=== PATIENT | female | born 1990 | race Caucasian/White ===

== ENCOUNTER 2016-08-13 18:04 | Emergency (ER) | payer MEDICAID, OTHER ==
[~2016-08-13] VITALS: Ht 160 cm; Wt 64.5 kg
[~2016-08-13 18:04] MED LIST: PRENAT PO
[2016-08-13 18:10] VITALS: Ht 160 cm; Wt 64.5 kg
--- NOTE | 2016-08-13 18:46 | ERD ---
ER Documentation Chief Complaint Date/Time DATE: 08/13/16 TIME: 18:38 Chief Complaint VAG BLEED , LMP 07/02/16 HPI 26 year old female density department for complaints of vaginal bleeding that started today, patient last menstruation 06/12/2016. Patient states she may be approximately 6 weeks . Patient had a spotting episode 3 weeks ago, started to have bleeding today, more heavier and clots. Patient denies any flank pain. Patient is in nausea vomiting. Patient denies any fever or chills. ROS All systems reviewed and are negative except as per history of present illness. Medications Home Meds Reported Medications Multivit/Min/Fol Ac/Iron/Pren* ( S*) 1 Tab Tab, 1 TAB PO DAILY, TAB 11/09/14 Allergies Allergies: Coded Allergies: No Known Allergy (Unverified , 08/13/16) PMhx/Soc Medical and Surgical Hx: pt denies Medical Hx History of Surgery: Yes (c-sec x1) Anesthesia Reaction: No Hx Neurological Disorder: No Hx Respiratory Disorders: No Hx Cardiac Disorders: No Hx Psychiatric Problems: No Hx Miscellaneous Medical Probl: No Hx Alcohol Use: No Hx Substance Use: No Hx Tobacco Use: No Smoking Status: Never smoker FmHx Family History: No coronary disease, No diabetes, No other Physical Exam Vitals Vital Signs Date Time Temp Pulse Resp B/P Pulse Ox O2 Delivery O2 Flow Rate FiO2 08/13/16 18:10 98.9 90 18 137/84 100 Physical Exam GENERAL: The patient is well developed and appropriate for usual state of health, in no apparent distress. CHEST: Clear to auscultation bilaterally. There are no rales, wheezes or rhonchi. HEART: Regular rate and rhythm. No murmurs, clicks, rubs or gallops. No S3 or S4. ABDOMEN: Soft, nontender and nondistended. Good bowel sounds. No rebound or guarding. No gross peritonitis. No gross organomegaly or masses. No Subramanian sign or McBurney point tenderness. BACK: No midline or flank tenderness. EXTREMITIES: Equal pulses bilaterally. There is no peripheral clubbing, cyanosis or edema. No focal swelling or erythema. Full range of motion. Grossly neurovascularly intact. NEURO: Alert and oriented. Cranial nerves 2-12 intact. Motor strength in all 4 extremities with 5/5 strength. Sensation grossly intact. Normal speech and gait. SKIN: There is no apparent rash or petechia. The skin is warm and dry. HEMATOLOGIC AND LYMPHATIC: There is no evidence of excessive bruising or lymphedema. No gross cervical, axillary, or inguinal lymphadenopathy. Vaginal: Small amount of blood in the vaginal vault. Cervical os is closed. No cervical motion tenderness or adnexal tenderness noted. Result Diagram: 08/13/16 1850 Results 24 hrs Laboratory Tests Test 08/13/16 18:50 White Blood Count 10.810^3/ul Red Blood Count 4.4810^6/ul Hemoglobin 12.1g/dl Hematocrit 35.6% Mean Corpuscular Volume 79.5fl Mean Corpuscular Hemoglobin 27.0pg Mean Corpuscular Hemoglobin Concent 34.0g/dl Red Cell Distribution Width 12.3% Platelet Count 91087^3/UL Mean Platelet Volume 10.7fl Neutrophils % 76.3% Lymphocytes % 16.1% Monocytes % 6.4% Eosinophils % 0.7% Basophils % 0.1% Nucleated Red Blood Cells % 0.0/100WBC Neutrophils # 8.310^3/ul Lymphocytes # 1.710^3/ul Monocytes # 0.710^3/ul Eosinophils # 0.110^3/ul Basophils # 0.010^3/ul Nucleated Red Blood Cells # 0.010^3/ul Urine Color STRAW Urine Clarity CLEAR Urine pH 7.0 Urine Specific [place] 1.009 Urine Ketones NEGATIVEmg/dL Urine Nitrite NEGATIVEmg/dL Urine Bilirubin NEGATIVEmg/dL Urine Urobilinogen NEGATIVEmg/dL Urine Leukocyte Esterase NEGATIVELeu/ul Urine Hemoglobin NEGATIVEmg/dL Urine Glucose NEGATIVEmg/dL Urine Total Protein NEGATIVEmg/dl Beta HCG, Quantitative 05572.0mIU/ml PROCEDURE: US OB. CLINICAL INDICATION: Vaginal bleeding. TECHNIQUE: Multiple sonographic images of the pelvis were obtained. Transabdominal and transvaginal views of the pelvis are available for review. The images were reviewed on a PACS workstation. COMPARISON: No prior studies are available for comparison. FINDINGS: A single live intrauterine is identified. heart rate is 110 beats per minute. The crown-rump length is 0.38 cm which corresponds to 6 weeks 0 days gestational age by ultrasound criteria. Estimated date of delivery is by crown rump length. There is a minimal amount of subchorionic hemorrhage adjacent to the gestational sac. There is a 1 x 0.96 x 1.2 cm uterine fibroid. The ovaries are not identified.. There is no adnexal mass. There is no free fluid. IMPRESSION: 1. Single live intrauterine gestation of approximately 6 weeks 0 days. 2. Minimal subchorionic hemorrhage. 3.Small uterine fibroid. 4. Ovaries not identified. RPTAT: HMVK .Erasmo Cortez MD, MD Date Time Electronically viewed and signed by .Erasmo Cortez MD, on 08/13/2016 20:07 .K/ CC: JUANPABLO CHAVEZ [employer] Procedures/MDM Medical Decision Making: Patients vaginal bleeding is most likely consistent of possible threatened . Patient does not show any evidence of hypovolemic shock. Patients hemoglobin and hematocrit is stable. There is low suspicion for ectopic . [place] results show intrauterine 6 weeks with uterine fibroid and mild subchorionic hemorrhage most likely causing the bleeding. BetaHCG Quantitative is appropriate for The patient is Rh+, does not need RhoGAM this time. There is no signs of symptoms of dehydration. There is low suspicion for sepsis. Patient appears well and is hemodynamically stable. Disposition: Home. Condition: Stable Instructions: Patient is advised to do bed rest, avoid heavy lifting, and avoid having sex until cleared by OB doctor. Patient is advised to follow up with OB doctor or here at the ER in 48 hours for reevaluation of symptoms, repeat beta HCG quantitative and ultrasound. Patient is advised that is symptoms are worst, severe bleeding, dizziness, severe abdominal pain, fever, worst signs and symptoms to return to the emergency department immediately. Departure Diagnosis: Primary Impression: Vaginal bleeding in patient at less than 20 weeks gestation Additional Impressions: Subchorionic hemorrhage Fetus number: single or unspecified fetus Trimester: first trimester Qualified Code: O41.8X10 - Subchorionic hemorrhage, first trimester, not applicable or unspecified fetus Intrauterine Uterine fibroid Uterine leiomyoma location: unspecified location Qualified Code: D25.9 - Uterine leiomyoma, unspecified location Condition: Stable Patient Instructions: Bleeding During Early , Uterine Fibroids Additional Instructions: Patient is advised to do bed rest, avoid heavy lifting, and avoid having sex until cleared by OB doctor. Patient is advised to follow up with OB doctor or here at the ER in 48 hours for reevaluation of symptoms, repeat beta HCG quantitative and ultrasound. Patient is advised that is symptoms are worst, severe bleeding, dizziness, severe abdominal pain, fever, worst signs and symptoms to return to the emergency department immediately. JUANPABLO CHAVEZ NP Aug 13, 2016 18:46
[2016-08-13 19:14] LABS: ADD UMIC NO; BASOPHILS % 0.1 % (0.0-2.0); EOSINOPHILS # 0.1 10^3/ul (0.0-0.5); EOSINOPHILS % 0.7 % (0.0-7.0); HEMATOCRIT 35.6 % (37.0-47.0); HEMOGLOBIN 12.1 g/dl (12.0-16.0); LYMPHOCYTES # 1.7 10^3/ul (0.8-2.9); LYMPHOCYTES % 16.1 % (15.0-51.0); MEAN CORPUSCULAR VOLUME 79.5 fl (82.0-101.0); MEAN PLATELET VOLUME 10.7 fl (7.4-10.4); MONOCYTE # 0.7 10^3/ul (0.3-0.9); MONOCYTES % 6.4 % (0.0-11.0); NEUTROPHIL # 8.3 10^3/ul (1.6-7.5); NEUTROPHILS % 76.3 % (39.0-77.0); PLATELET COUNT 221 10^3/UL (140-415); RED BLOOD COUNT 4.48 10^6/ul (4.20-5.40); RED CELL DISTRIBUTION WIDTH 12.3 % (11.5-14.5); UR ASCORBIC ACID NEGATIVE (NEGATIVE); UR BILIRUBIN (Dip) NEGATIVE (NEGATIVE); UR BLOOD (Dip) NEGATIVE (NEGATIVE); UR CLARITY CLEAR (CLEAR); UR COLOR STRAW (YELLOW); UR GLUCOSE (Dip) NEGATIVE (NEGATIVE); UR KETONES (Dip) NEGATIVE (NEGATIVE); UR LEUKOCYTE ESTERASE (Dip) NEGATIVE Leu/ul (NEGATIVE); UR NITRITE (Dip) NEGATIVE (NEGATIVE); UR SPECIFIC GRAVITY (Dip) 1.009 (1.003-1.030); UR TOTAL PROTEIN (Dip) NEGATIVE (NEGATIVE); UR UROBILINOGEN (Dip) NEGATIVE (NEGATIVE); WHITE BLOOD COUNT 10.8 10^3/ul (4.8-10.8)
[2016-08-13 19:16] LABS: ADD SCAN DIFF NO
--- NOTE | 2016-08-13 20:07 | RADRPT ---
PROCEDURE: US OB. CLINICAL INDICATION: Vaginal bleeding. TECHNIQUE: Multiple sonographic images of the pelvis were obtained. Transabdominal and transvagin al views of the pelvis are available for review. The images were reviewed on a PACS workstation. COMPARISON: No prior studies are available for comparison. FINDINGS: A single live intrauterine is identified. heart rate is 110 beats per minute. The cr own-rump length is 0.38 cm which corresponds to 6 weeks 0 days gestational age by ultrasound criteri a. Estimated date of delivery is 04/08/2017 by crown rump length. There is a minimal amount of sub chorionic hemorrhage adjacent to the gestational sac. There is a 1 x 0.96 x 1.2 cm uterine fibroid. The ovaries are not identified.. There is no adnexal mass. There is no free fluid. IMPRESSION: 1. Single live intrauterine gestation of approximately 6 weeks 0 days. 2. Minimal subchorionic hemorrhage. 3.Small uterine fibroid. 4. Ovaries not identified. RPTAT: HMVK .Erasmo Cortez MD, Date Time Electronically viewed and signed by .Erasmo Cortez MD, on 08/13/2016 20:07 .K/
== END 2016-08-13 20:40 | disposition home or self-care (01) ==
LOC: FTE 18:04
DX: O20.9 Hemorrhage in early pregnancy, unspecified (principal); O41.8X10 Other specified disorders of amniotic fluid and membranes, first trimester, not applicable or unspecified; O34.11 Maternal care for benign tumor of corpus uteri, first trimester; R10.2 Pelvic and perineal pain; Z3A.01 Less than 8 weeks gestation of pregnancy
CPT/HCPCS: 36415; 76801; 81003; 84702; 85025; 86900; 86901

== ENCOUNTER 2016-08-17 21:33 | Emergency (ER) | payer OTHER ==
[~2016-08-17] VITALS: Ht 160 cm; Wt 65.0 kg
[2016-08-17 21:38] VITALS: Ht 160 cm; Wt 65.0 kg
[2016-08-17] MEDS ORDERED: ACETAMINOPHEN 500 MG TAB PO STA (22:32)
--- NOTE | 2016-08-17 22:37 | ERD ---
ER Documentation Chief Complaint Date/Time DATE: 08/17/16 TIME: 22:35 Chief Complaint abdominal cramping x 5 days. denies vb was here 4 days ago for same HPI This a 18-year-old female who presents the emergency department today for concerns of continued vaginal spotting and bleeding and "passing a clot today". States she has had some nausea and has continued cramping. States she is not taking medication for the pain. States she is approximate 6 weeks . States she went to her primary care doctor today but still waiting for [employer] referral. Denies any fevers or chills, back pain ROS All systems reviewed and are negative except as per history of present illness. Medications Home Meds Active Scripts Cephalexin* (Keflex*) 500 Mg Capsule, 500 MG PO QID for 7 Days, CAP Prov:CATHI ABRAMS PA-C 08/18/16 Acetaminophen* (Tylophen*) 500 Mg Capsule, 1 CAP PO Q6H Y for PAIN AND OR ELEVATED TEMP, #30 CAP Prov:CATHI ABRAMS PA-C 08/18/16 Reported Medications Multivit/Min/Fol Ac/Iron/Pren* ( S*) 1 Tab Tab, 1 TAB PO DAILY, TAB 11/09/14 Allergies Allergies: Coded Allergies: No Known Allergy (Unverified , 08/17/16) PMhx/Soc Medical and Surgical Hx: pt denies Medical Hx History of Surgery: Yes (c-sec x1) Anesthesia Reaction: No Hx Neurological Disorder: No Hx Respiratory Disorders: No Hx Cardiac Disorders: No Hx Psychiatric Problems: No Hx Miscellaneous Medical Probl: No Hx Alcohol Use: No Hx Substance Use: No Hx Tobacco Use: No Smoking Status: Never smoker Physical Exam Vitals Vital Signs Date Time Temp Pulse Resp B/P Pulse Ox O2 Delivery O2 Flow Rate FiO2 08/17/16 21:38 98.2 95 20 141/92 99 Physical Exam Const: No acute distress Head: Atraumatic Eyes: Normal Conjunctiva ENT: Normal External Ears, Nose and Mouth. Neck: Full range of motion..~ No meningismus. Resp: Clear to auscultation bilaterally Cardio: Regular rate and rhythm, no murmurs Abd: Soft, mild pelvic tenderness non distended. Normal bowel sounds. No right lower quadrant pain. No tenderness McBurney Skin: No petechiae or rashes Back: No midline or flank tenderness Ext: No cyanosis, or edema Neur: Awake and alert Psych: Normal Mood and Affect Result Diagram: 08/17/16225408/17/162254 Results 24 hrs Laboratory Tests Test 08/17/16 22:55 White Blood Count 9.110^3/ul Red Blood Count 4.6910^6/ul Hemoglobin 12.6g/dl Hematocrit 37.7% Mean Corpuscular Volume 80.4fl Mean Corpuscular Hemoglobin 26.9pg Mean Corpuscular Hemoglobin Concent 33.4g/dl Red Cell Distribution Width 12.6% Platelet Count 12748^3/UL Mean Platelet Volume 10.4fl Neutrophils % 68.8% Lymphocytes % 22.1% Monocytes % 7.9% Eosinophils % 0.8% Basophils % 0.2% Nucleated Red Blood Cells % 0.0/100WBC Neutrophils # 6.210^3/ul Lymphocytes # 2.010^3/ul Monocytes # 0.710^3/ul Eosinophils # 0.110^3/ul Basophils # 0.010^3/ul Nucleated Red Blood Cells # 0.010^3/ul Urine Color YELLOW Urine Clarity CLOUDY Urine pH 7.0 Urine Specific [place] 1.019 Urine Ketones NEGATIVEmg/dL Urine Nitrite NEGATIVEmg/dL Urine Bilirubin NEGATIVEmg/dL Urine Urobilinogen NEGATIVEmg/dL Urine Leukocyte Esterase 1+[place]/ul Urine Microscopic RBC 2/HPF Urine Microscopic WBC 11/HPF Urine Squamous Epithelial Cells MODERATE/HPF Urine Hemoglobin 2+mg/dL Urine Glucose NEGATIVEmg/dL Urine Total Protein NEGATIVEmg/dl Sodium Level 142mmol/L Potassium Level 3.9mmol/L Chloride Level 98mmol/L Carbon Dioxide Level 28mmol/L Anion Gap 20 Blood Urea Nitrogen 14mg/dl Creatinine 0.50mg/dl Glucose Level 85mg/dl Calcium Level 9.6mg/dl Total Bilirubin 0.1mg/dl Direct Bilirubin 0.00mg/dl Indirect Bilirubin 0.1mg/dl Aspartate Amino Transf (AST/SGOT) 17IU/L Alanine Aminotransferase (ALT/SGPT) 24IU/L Alkaline Phosphatase 44IU/L Total Protein 8.6g/dl Albumin 5.0g/dl Globulin 3.60g/dl Albumin/Globulin Ratio 1.38 Beta HCG, Quantitative 29585.0mIU/ml Current Medications Medications (Trade) Dose Ordered Sig/Jana Route PRN Reason Start Time Stop Time Status Last Admin Dose Admin Acetaminophen (Tylenol Tab) 500 mg ONCE STAT PO 08/17/16 22:32 08/17/16 22:35 DC 08/17/16 22:47 DIAGNOSTIC IMAGING REPORT Patient: FUNMILAYO KEEN : 1990 Age: 26 Sex: F MR #: [id number] DOS: 08/17/16 2232 Ordering MD: CATHI ABRAMS PA-C Location: [facility] Room/Bed: PROCEDURE: US OB. CLINICAL INDICATION: Vaginal bleeding. Positive TECHNIQUE: Transabdominal and transvaginal views of the pelvis are available for review. COMPARISON: 08/13/2016 FINDINGS: Uterus: Normal in size with incidental posterior intramural leiomyoma estimated at 1.1 x 1.7 x 1.1 cm. Endometrial cavity: Intrauterine gestational sac, yolk sac and pole are present with the following information: Oblong-rump length: 0.73 cm heart rate: 125 bpm Gestational sac: 2.16 cm Ultrasound estimated gestational age: 6 weeks 6 days No evidence of subchorionic hemorrhage Right ovary/adnexa: The ovary is not visualized Left ovary/adnexa: Ovarian size normal estimated at 3 x 2 x 2 cm. Normal blood flow seen on Doppler interrogation No ovarian or adnexal mass lesion is seen. Cul-de-sac: There is no free fluid. RPTAT:HJJR IMPRESSION: 1. Single viable intrauterine with an estimated gestational age of 6 weeks 6 days. 2. No evidence of subchorionic hemorrhage. 3. Stable posterior intramural leiomyoma of 1.7 cm. 4. Sonographically unremarkable left ovary; the right ovary is not visualized. Physician Niyah Date Time Electronically viewed and signed by Physician Niyah on 08/17/2016 23:37 JR/ CC: CATHI ABRAMS PA-C Procedures/MDM This 26-year-old female presents to the emergency department today complaining of concerns of "passing tissue or a clot of blood today". Upon review of patient's medical record she was here on August 13, 2016, 5 days ago and had a full OB workup at that time. She was shown to have an IUP of 6 weeks as well uterine fibroid and a small subchorionic hemorrhage. Patient states that she is still continued to spot. She has not taken any medication for the pain. Given patient's complaints of passing a clot I did repeat blood work including a beta quant as well as an ultrasound. Patient was Rh+ on her last visit and I did not repeat that today Laboratory work shows no elevated white blood cell count. She is not anemic. Platelets are within normal limits. Electrolytes are within normal limits. Glucose is within normal limits. Liver function is within normal limits. UA shows 1+ leukocyte esterase negative nitrites. Beta quant hCG 36248 point Ultrasound shows a single viable intrauterine with an estimated gestational age of 6 weeks and 6 days. There is no evidence of subchorionic hemorrhage. There is a stable posterior intramural myoma of 1.7 cm. There is no free fluid. There is no ovarian or adnexal mass lesion seen. Patient was given Tylenol here in the emergency department. She declined any medication for nausea. Patient symptoms at this time is consistent with vaginal bleeding in early . Other differentials to consider early normal versus early failed versus placenta previa versus subchorionic hemorrhage. Patient is afebrile and otherwise well-appearing. I have low suspicion for ectopic , tubo ovarian abscess, ovarian torsion. Patient continues to have some vaginal bleeding and cramping. She was given Tylenol here in the emergency department reported feeling better.. I will give her prescription for Tylenol for home. She also hears to have evidence of a urinary tract infection at this time. She did not have this upon her visit 5 days ago. This may be the cause of the patient's dizziness. She is not anemic. Her subchorionic hemorrhage is no longer evident on ultrasound and this may be the reason that the patient stated that she saw a "clot past". I have explained the results to the patient. Patient was instructed to follow- up with her primary care doctor for referral to [employer]. Patient has been understood At this time the patient is stable for discharge and outpatient management. Patient should follow up with their PCP in the next 1-2 days. They may return to the emergency department sooner for any persistent or worsening of symptoms. Patient understood and agreed with the plan. Departure Diagnosis: Primary Impression: Vaginal bleeding in Trimester: first trimester Qualified Code: O46.91 - Vaginal bleeding in , first trimester Additional Impression: UTI (urinary tract infection) Urinary tract infection type: site unspecified Hematuria presence: without hematuria Qualified Code: N39.0 - Urinary tract infection without hematuria, site unspecified Condition: CATHI Goldstein PA-C Aug 17, 2016 22:37
[2016-08-17 22:59] LABS: ADD SCAN DIFF NO
[2016-08-17 23:02] LABS: BASOPHILS % 0.2 % (0.0-2.0); EOSINOPHILS # 0.1 10^3/ul (0.0-0.5); EOSINOPHILS % 0.8 % (0.0-7.0); HEMATOCRIT 37.7 % (37.0-47.0); HEMOGLOBIN 12.6 g/dl (12.0-16.0); LYMPHOCYTES % 22.1 % (15.0-51.0); MEAN CORPUSCULAR HEMOGLOBIN 26.9 pg (29.0-33.0); MEAN CORPUSCULAR HGB CONC 33.4 g/dl (32.0-37.0); MEAN CORPUSCULAR VOLUME 80.4 fl (82.0-101.0); MEAN PLATELET VOLUME 10.4 fl (7.4-10.4); MONOCYTE # 0.7 10^3/ul (0.3-0.9); MONOCYTES % 7.9 % (0.0-11.0); NEUTROPHIL # 6.2 10^3/ul (1.6-7.5); NEUTROPHILS % 68.8 % (39.0-77.0); PLATELET COUNT 218 10^3/UL (140-415); RED BLOOD COUNT 4.69 10^6/ul (4.20-5.40); RED CELL DISTRIBUTION WIDTH 12.6 % (11.5-14.5); WHITE BLOOD COUNT 9.1 10^3/ul (4.8-10.8)
[2016-08-17 23:08] LABS: ADD UMIC YES; UR ASCORBIC ACID NEGATIVE (NEGATIVE); UR BILIRUBIN (Dip) NEGATIVE (NEGATIVE); UR BLOOD (Dip) 2+ mg/dL (NEGATIVE); UR CLARITY CLOUDY (CLEAR); UR COLOR YELLOW (YELLOW); UR GLUCOSE (Dip) NEGATIVE (NEGATIVE); UR KETONES (Dip) NEGATIVE (NEGATIVE); UR LEUKOCYTE ESTERASE (Dip) 1+ Leu/ul (NEGATIVE); UR NITRITE (Dip) NEGATIVE (NEGATIVE); UR RBC 2 /HPF (0-5); UR SPECIFIC GRAVITY (Dip) 1.019 (1.003-1.030); UR SQUAMOUS EPITHELIAL CELL MODERATE /HPF (FEW); UR TOTAL PROTEIN (Dip) NEGATIVE (NEGATIVE); UR UROBILINOGEN (Dip) NEGATIVE (NEGATIVE)
[2016-08-17 23:23] LABS: ALBUMIN/GLOBULIN RATIO 1.38; BILIRUBIN,INDIRECT 0.1 mg/dl (0-1.1); BILIRUBIN,TOTAL 0.1 mg/dl (0.2-1.3); CALCIUM 9.6 mg/dl (8.4-10.2); CREATININE 0.5 mg/dl (0.44-1.00); POTASSIUM 3.9 mmol/L (3.5-5.1); TOTAL PROTEIN 8.6 g/dl (6.1-8.1)
--- NOTE | 2016-08-17 23:37 | RADRPT ---
PROCEDURE: US OB. CLINICAL INDICATION: Vaginal bleeding. Positive TECHNIQUE: Transabdominal and transvaginal views of the pelvis are available for review. COMPARISON: 08/13/2016 FINDINGS: Uterus: Normal in size with incidental posterior intramural leiomyoma estimated at 1.1 x 1.7 x 1.1 cm. Endometrial cavity: Intrauterine gestational sac, yolk sac and pole are present with the foll owing information: Huey-rump length:0.73 cm heart rate:125 bpm Gestational sac:2.16 cm Ultrasound estimated gestational age:6 weeks 6 days No evidence of subchorionic hemorrhage Right ovary/adnexa: The ovary is not visualized Left ovary/adnexa: Ovarian size normal estimated at 3 x 2 x 2 cm. Normal blood flow seen on Doppler interrogation No ovarian or adnexal mass lesion is seen. Cul-de-sac: There is no free fluid. RPTAT:HJJR IMPRESSION: 1. Single viable intrauterine with an estimated gestational age of 6 weeks 6 days. 2. No evidence of subchorionic hemorrhage. 3. Stable posterior intramural leiomyoma of 1.7 cm. 4. Sonographically unremarkable left ovary; the right ovary is not visualized. Physician Niyah Date Time Electronically viewed and signed by Physician Niyah on 08/17/2016 23:37 /
[2016-08-18] MEDS ORDERED: CEPH-443 PO (00:09)
[2016-08-18] MEDS ORDERED: ACET500C5 PO (00:09)
[2016-08-18 00:34] VITALS: BP 111/69; PULSE 76; RESP 18; TEMP 98.9
== END 2016-08-18 00:40 | disposition home or self-care (01) ==
LOC: FTE 21:33
DX: O20.9 Hemorrhage in early pregnancy, unspecified (principal); O23.41 Unspecified infection of urinary tract in pregnancy, first trimester; R10.2 Pelvic and perineal pain; Z3A.01 Less than 8 weeks gestation of pregnancy
CPT/HCPCS: 76801; 80053; 81001; 84702; 85025; Z7610; 36415

== ENCOUNTER 2016-10-16 04:38 | Emergency (ER) | payer OTHER ==
[~2016-10-16] VITALS: Ht 162.6 cm; Wt 63.5 kg
[~2016-10-16 04:38] MED LIST changes: +ACET500C5 PO; +CEPH-443 PO
[2016-10-16 04:42] VITALS: Ht 162.6 cm; Wt 63.5 kg
[2016-10-16] MEDS ORDERED: ONDANSETRON (ODT) 4 MG TAB ODT STA (06:18)
[2016-10-16] MEDS ORDERED: FAMOTIDINE 20 MG TAB PO ONE (06:30)
--- NOTE | 2016-10-16 06:38 | ERD ---
ER Documentation Chief Complaint Date/Time DATE: 10/16/16 TIME: 06:36 Chief Complaint Abdominal pain HPI [id number] female who is A0 15 weeks presents with pelvic pain , nausea, vomiting and epigastric pain that started yesterday. She reports localized pain that is achy, she also states his upper back pain. She reports one episode of nonbloody nonbilious emesis. She denies fevers, chills, chest pain shortness of breath. Patient denies pelvic pain, vaginal bleeding. ROS All systems reviewed and are negative except as per history of present illness. Medications Home Meds Active Scripts Cephalexin* (Keflex*) 500 Mg Capsule, 500 MG PO QID for 7 Days, CAP Prov:CATHI ABRAMS PA-C 08/18/16 Acetaminophen* (Tylophen*) 500 Mg Capsule, 1 CAP PO Q6H Y for PAIN AND OR ELEVATED TEMP, #30 CAP Prov:CATHI ABRAMS PA-C 08/18/16 Reported Medications Multivit/Min/Fol Ac/Iron/Pren* ( S*) 1 Tab Tab, 1 TAB PO DAILY, TAB 11/09/14 Allergies Allergies: Coded Allergies: No Known Allergy (Unverified , 08/17/16) PMhx/Soc History of Surgery: Yes (c-sec x1) Anesthesia Reaction: No Hx Neurological Disorder: No Hx Respiratory Disorders: No Hx Cardiac Disorders: No Hx Psychiatric Problems: No Hx Miscellaneous Medical Probl: No Hx Alcohol Use: No Hx Substance Use: No Hx Tobacco Use: No Smoking Status: Never smoker Physical Exam Vitals Vital Signs Date Time Temp Pulse Resp B/P Pulse Ox O2 Delivery O2 Flow Rate FiO2 10/16/16 04:42 99.3 111 20 125/73 99 Physical Exam General: Well-developed, well-nourished. The patient appears in no acute distress. HEENT: Head is normocephalic, atraumatic. No scleral icterus. Pupils are equal , round, and reactive. Oral mucous membranes are moist. No pharyngeal erythema. Neck: Supple. Nontender. Lungs: Clear to auscultation. Normal air movement. Heart: Regular rate and rhythm. S1 and S2 are normal. No murmurs, gallops, or rubs. Abdomen: Soft, tender to palpation in the epigastric region, negative Subramanian sign, nondistended. Bowel sounds are normoactive. Extremities: No clubbing or cyanosis. Normal pulses. Moving extremities x 4. No weakness. Neurologic: Alert and oriented 3. No focal deficits. Skin: Normal turgor. No rash or lesions. Result Diagram: 10/16/16 0645 10/16/16 0645 Results 24 hrs Laboratory Tests Test 10/16/16 06:40 10/16/16 06:45 Urine Color YELLOW Urine Clarity CLOUDY Urine pH 6.0 Urine Specific [place] 1.026 Urine Ketones 1+mg/dL Urine Nitrite NEGATIVEmg/dL Urine Bilirubin NEGATIVEmg/dL Urine Urobilinogen 2+mg/dL Urine Leukocyte Esterase 3+Alice/ul Urine Microscopic RBC 2/HPF Urine Microscopic WBC 37/HPF Urine Squamous Epithelial Cells MANY/HPF Urine Bacteria FEW/HPF Urine Mucus FEW/HPF Urine Hemoglobin NEGATIVEmg/dL Urine Glucose NEGATIVEmg/dL Urine Total Protein 1+mg/dl White Blood Count 7.810^3/ul Red Blood Count 4.6210^6/ul Hemoglobin 12.4g/dl Hematocrit 36.7% Mean Corpuscular Volume 79.4fl Mean Corpuscular Hemoglobin 26.8pg Mean Corpuscular Hemoglobin Concent 33.8g/dl Red Cell Distribution Width 12.9% Platelet Count 78288^3/UL Mean Platelet Volume 10.2fl Neutrophils % 80.5% Lymphocytes % 12.1% Monocytes % 6.7% Eosinophils % 0.1% Basophils % 0.1% Nucleated Red Blood Cells % 0.0/100WBC Neutrophils # (Manual) 6.310^3/ul Lymphocytes # 0.910^3/ul Monocytes # 0.510^3/ul Eosinophils # 0.010^3/ul Basophils # 0.010^3/ul Nucleated Red Blood Cells # 0.010^3/ul Sodium Level 138mmol/L Potassium Level 3.7mmol/L Chloride Level 103mmol/L Carbon Dioxide Level 24mmol/L Anion Gap 15 Blood Urea Nitrogen 10mg/dl Creatinine 0.50mg/dl Glucose Level 102mg/dl Calcium Level 8.5mg/dl Total Bilirubin 0.3mg/dl Direct Bilirubin 0.00mg/dl Indirect Bilirubin 0.3mg/dl Aspartate Amino Transf (AST/SGOT) 16IU/L Alanine Aminotransferase (ALT/SGPT) 27IU/L Alkaline Phosphatase 45IU/L Total Protein 7.9g/dl Albumin 4.1g/dl Globulin 3.80g/dl Albumin/Globulin Ratio 1.07 Lipase 29U/L Current Medications Medications (Trade) Dose Ordered Sig/Jana Route PRN Reason Start Time Stop Time Status Last Admin Dose Admin Ondansetron HCl (Zofran Odt) 4 mg ONCE STAT ODT 10/16/16 06:18 10/16/16 06:20 DC 10/16/16 06:59 Famotidine 20 mg 20 mg ONCE ONCE PO 10/16/16 06:30 10/16/16 06:31 DC 10/16/16 06:59 Ceftriaxone Sodium 50 ml @ 100 mls/hr ONCE ONCE IVPB 10/16/16 08:30 10/16/16 08:59 Sodium Chloride (NS) 1,000 ml @ 1,000 mls/hr Q1H ONCE IV 10/16/16 08:30 10/16/16 09:29 Patient: FUNMILAYO KEEN : 1990 Age: 26 Sex: F MR #: [id number] DOS: 10/16/16 0604 Ordering MD: PATRICK FIELDS PA-C Location: [facility] Room/Bed: PROCEDURE: Real Time Sonogram. 10/16/20167:30 AM CLINICAL INDICATION: Pelvic pain TECHNIQUE: This procedure was performed on a high-resolution real time Unit using a endovaginal probe. COMPARISON: OB sonogram 08/17/2016. FINDINGS: The uterus is identified and contains a single fetus. Presentation: Mobile. Cervical Length: Not evaluated. Placental Location: Posterior, grade 0. Placental Previa: The cervical loss is not well demonstrated. Not evaluated. Body limb and cardiac motion: Yes. Heart rate: 154 beats per minute. Amniotic fluid volume: Normal. Measured data: BPD: 3 cm 15 weeks 4 days plus or minus 1 week 1 day. HC: 11.76 cm 15-week 6 days plus or minus 1 week 1 day. AC: 10.23 cm 16 weeks 2 days plus or minus 1 week 5 days. FC: 1.45 cm 14 weeks 2 days plus or minus 1 week 3 days. AUA: 15 weeks 4 days plus or minus 1 week 1 day. TREVOR (AUA): 04/05/2017. Serial scan estimated menstrual age: Not calculated. weight: 120.8 g plus or minus 18.12 g. Endovaginal imaging utilized:Yes Additional findings: No abnormal adnexal mass or free fluid is noted in the pelvis. IMPRESSION: See above RPTAT:AAJJ Elijah Crisostomo Physician Date Time Electronically viewed and signed by Elijah Crisostomo Physician on 10/16/2016 08:05 JM/ Procedures/MDM ED course: Patient received Pepcid 20 mg by mouth, Zofran 4 mg ODT. MDM: 18-year-old female presents with epigastric abdominal pain, nausea vomiting and is 15 weeks , Patient has evidence of a urinary tract infection with multiple white blood cells, urine analysis positive for leukocyte esterase. There is also ketonuria, given that she is has had vomiting patient was also given normal saline bolus intravenously, she also received Rocephin 1 g IV. There is a single live intrauterine on ultrasound. She is otherwise well appearing, stable for discharge. Departure Diagnosis: Primary Impression: UTI (urinary tract infection) Additional Impression: Second trimester Condition: PATRICK Duran PA-C Oct 16, 2016 06:38
[2016-10-16 07:14] LABS: BASOPHILS % 0.1 % (0.0-2.0); EOSINOPHILS % 0.1 % (0.0-7.0); HEMATOCRIT 36.7 % (37.0-47.0); HEMOGLOBIN 12.4 g/dl (12.0-16.0); LYMPHOCYTES # 0.9 10^3/ul (0.8-2.9); LYMPHOCYTES % 12.1 % (15.0-51.0); MEAN CORPUSCULAR HEMOGLOBIN 26.8 pg (29.0-33.0); MEAN CORPUSCULAR HGB CONC 33.8 g/dl (32.0-37.0); MEAN CORPUSCULAR VOLUME 79.4 fl (82.0-101.0); MEAN PLATELET VOLUME 10.2 fl (7.4-10.4); MONOCYTE # 0.5 10^3/ul (0.3-0.9); MONOCYTES % 6.7 % (0.0-11.0); NEUTROPHILS % 80.5 % (39.0-77.0); PLATELET COUNT 202 10^3/UL (140-415); RED BLOOD COUNT 4.62 10^6/ul (4.20-5.40); RED CELL DISTRIBUTION WIDTH 12.9 % (11.5-14.5); WHITE BLOOD COUNT 7.8 10^3/ul (4.8-10.8)
[2016-10-16 07:24] LABS: ALBUMIN 4.1 g/dl (3.3-4.9); ALBUMIN/GLOBULIN RATIO 1.07; BILIRUBIN,INDIRECT 0.3 mg/dl (0-1.1); BILIRUBIN,TOTAL 0.3 mg/dl (0.2-1.3); CALCIUM 8.5 mg/dl (8.4-10.2); CREATININE 0.5 mg/dl (0.44-1.00); POTASSIUM 3.7 mmol/L (3.5-5.1); TOTAL PROTEIN 7.9 g/dl (6.1-8.1)
[2016-10-16 07:25] LABS: ADD UMIC YES; UR ASCORBIC ACID 20 mg/dL (NEGATIVE); UR BACTERIA FEW /HPF (NONE SEEN); UR BILIRUBIN (Dip) NEGATIVE (NEGATIVE); UR BLOOD (Dip) NEGATIVE (NEGATIVE); UR CLARITY CLOUDY (CLEAR); UR COLOR YELLOW (YELLOW); UR GLUCOSE (Dip) NEGATIVE (NEGATIVE); UR KETONES (Dip) 1+ mg/dL (NEGATIVE); UR LEUKOCYTE ESTERASE (Dip) 3+ Leu/ul (NEGATIVE); UR MUCUS FEW /HPF (NONE SEEN); UR NITRITE (Dip) NEGATIVE (NEGATIVE); UR RBC 2 /HPF (0-5); UR SPECIFIC GRAVITY (Dip) 1.026 (1.003-1.030); UR SQUAMOUS EPITHELIAL CELL MANY /HPF (FEW); UR TOTAL PROTEIN (Dip) 1+ mg/dl (NEGATIVE); UR UROBILINOGEN (Dip) 2+ mg/dL (NEGATIVE)
--- NOTE | 2016-10-16 08:05 | RADRPT ---
PROCEDURE: Real Time Sonogram. 10/16/20167:30 AM CLINICAL INDICATION: Pelvic pain TECHNIQUE: This procedure was performed on a high-resolution real time Unit using a endovaginal pr obe. COMPARISON: OB sonogram 08/17/2016. FINDINGS: The uterus is identified and contains a single fetus. Presentation: Mobile. Cervical Length: Not evaluated.Placental Location: Posterior, grade 0.Placental Previa: The cervic al loss is not well demonstrated. Not evaluated. Body limb and cardiac motion: Yes.Heart rate: 154 beats per minute. Amniotic fluid volume:Normal. Measured data: BPD:3 cm15 weeks 4 days plus or minus 1 week 1 day. HC:11.76 xw90-thxu 6 days plus or minus 1 week 1 day. AC:10.23 cm16 weeks 2 days plus or minus 1 week 5 days. FC:1.45 cm14 weeks 2 days plus or minus 1 week 3 days. AUA:15 weeks 4 days plus or minus 1 week 1 day. TREVOR (AUA):04/05/2017. Serial scan estimated menstrual age: Not calculated. weight: 120.8 g plus or minus 18.12 g. Endovaginal imaging utilized:Yes Additional findings: No abnormal adnexal mass or free fluid is noted in the pelvis. IMPRESSION: See above RPTAT:AAJJ Physician Jovon Date Time Electronically viewed and signed by Physician Jovon on 10/16/2016 08:05 /
[2016-10-16] MEDS ORDERED: CEFTRIAXONE 1 GM/50 ML (PMX) 50 ML IVPB ONE (08:30)
[2016-10-16] MEDS ORDERED: SOD CHLORIDE 0.9% 1,000 ML IV ONE (08:30)
[2016-10-16] MEDS ORDERED: RANI150T9 PO (08:44)
[2016-10-16] MEDS ORDERED: NITR-58 PO (08:44)
[2016-10-16] MEDS ORDERED: ONDA4TAB14 PO (08:44)
[2016-10-16 09:28] VITALS: BP 123/77; PULSE 86; RESP 20; TEMP 98.3
== END 2016-10-16 09:29 | disposition home or self-care (01) ==
LOC: FTE 04:38
DX: O23.42 Unspecified infection of urinary tract in pregnancy, second trimester (principal); R10.2 Pelvic and perineal pain; Z3A.15 15 weeks gestation of pregnancy
CPT/HCPCS: 36415; 76805; 80053; 81001; 83690; 85025; 96374; J0696; J7030; Z7502; Z7610